=== PATIENT | male | born 1990 | race Caucasian/White ===

== ENCOUNTER 2019-11-23 14:13 | Inpatient (IN) ==
[2019-11-23] MEDS ORDERED: DIAZEPAM 5 MG/ML INJ 10ML VIAL IV STA (14:28)
[2019-11-23] MEDS ORDERED: ONDANSETRON INJ 2 MG/ML 2 ML VIAL IV STA (14:28)
[2019-11-23] MEDS ORDERED: KETOROLAC 30 MG/ML VIAL IV STA (14:28)
[2019-11-23] MEDS: SODIUM CHLORIDE 0.9% 1000ML 1,000 ML IV SCH ×2 (14:47→16:12)
[2019-11-23 14:58] LABS: Basophils # (auto) 0.02 K/uL (0-0.2); Basophils % (auto) 0.2 %; Eosinophils # (auto) 0.07 K/uL (0-0.5); Eosinophils % (auto) 0.7 %; Hematocrit (blood only) 41.2 % (42-52); Immature Granulocytes # (auto) 0.02 K/uL (0.00-0.02); Immature Granulocytes % (auto) 0.2 %; Lymphocytes # (auto) 2.08 K/uL (1.2-3.4); Lymphocytes % (auto) 21.9 %; Mean Corpuscular Volume 85.3 fL (80-100); Mean Platelet Volume 9.6 fL (7.4-10.4); Monocytes # (auto) 1.06 K/uL (0.11-0.59); Monocytes % (auto) 11.1 %; Neutrophils # (auto) 6.26 K/uL (1.4-6.5); Neutrophils % (auto) 65.9 %; Platelet Count 284 K/uL (130-400); RDW Standard Deviation 40.6 fL (36.4-46.3); Red Blood Count 4.83 M/uL (4.7-6.1); White Blood Count 9.51 K/uL (4.8-10.8)
[2019-11-23 15:16] LABS: BUN Creatinine Ratio 10.9 (10-20); Calcium 8.9 mg/dl (8.5-10.1); Creatinine Clr Calc Pharmacy 113.1 ml/min; Est GFR (African American) 106.5; Est GFR (Non-African American) 91.9; Potassium 3.6 mmol/L (3.5-5.1)
[2019-11-23] MEDS ORDERED: methylPREDNISolone 125 MG/2 ML VIAL IV STA (15:57)
--- NOTE | 2019-11-23 16:02 | XRay Report ---
XR lumbar spine 2-3V CLINICAL HISTORY: lower back pain pain. Trauma. COMPARISON STUDY: 09/03/2018 FINDINGS: Normal study IMPRESSION: Normal study. ACT 112: Negative or not required by law. The above report was generated using voice recognition software. It may contain grammatical, syntax or spelling errors. Electronically signed by: John Jordan M.D. 11/23/2019 4:00 PM
[2019-11-23] MEDS ORDERED: MoRPHine SULFATE 4 MG/ML 1 ML CARP\\VIAL IV STA (17:58)
--- NOTE | 2019-11-23 19:32 | Emergency Department Note ---
Entered by Jerald Thornton acting as a scribe for Master Ibarra DO History of Present Illness General Chief complaint: Back Injury/Pain Source: patient History of Present Illness Onset (ago): day(s) 1 Location: back (central) Pain Consistency: + constant Maximum Pain Intensity: 4 Quality: + other (back pain) Associated symptoms: + other (-leg pain; -rhinorrhea; ); no chest pain, no cough, no nausea/vomiting and no weakness The patient is a 28 year old male, with past medical history of disc herniation, who presents to the Emergency Room with complaints of constant, central back pain beginning yesterday. 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 The patient notes he went about his day normally after this, but he states the back pain made it hard for him to walk. The patient states that the pain worsened over night to the point where the patient states he laid on the floor at 0130 this morning because it was too painful to stand and move. The patient states he remained on the floor till EMS picked him up prior to arrival. The patient admits to having a herniated disc in high school. The patient states he has been able to urinate and defecate fine. He denies pain and weakness to his legs. The patient also denies a cough, rhinorrhea, nausea/vomiting, chest pain, or the pain moving down into his legs. The patient denies previous back surgeries, recent trauma or fall, history of drug use, or history of cancer. Home Medications Home Medications Medication Instructions Recorded Confirmed Type dextroamphetamine-amphetamine 20 mg PO BID 11/23/19 11/23/19 History hydrocodone-acetaminophen 1 tab PO Q6H PRN 11/23/19 11/23/19 History tizanidine 4 mg PO Q8H PRN 11/23/19 11/23/19 History Allergies Allergy/AdvReac Type Severity Reaction Status Date / Time No Known Allergies Allergy Unverified 11/23/19 14:57 Past Med/Surg History Medical History Disc herniation Family History Other No significant family history Social History Feels Safe at Home: Yes Smoking Status: Never smoker Review of Systems See HPI for pertinent positives & negatives. and A total of 10 systems reviewed and were otherwise negative Physical Exam Vital Signs Vital Signs - 24 hr 11/23/19 14:23 11/23/19 14:38 11/23/19 15:57 Temperature 36.9 C Temperature Source Oral Pulse Rate 100 H Pulse Rate [Apical] 72 Pulse Rhythm [Apical] Regular Pulse Strength [Apical] Normal Respiratory Rate 18 20 Respiratory Effort / Characteristics Non-Labored Spontaneous Respiratory Depth Normal Blood Pressure 148/89 H Blood Pressure [Right Arm] 138/76 Blood Pressure Mean 108 Blood Pressure Mean [Right Arm] 96 Pulse Oximetry 100 97 100 Oxygen Delivery Method Room Air Room Air Sepsis Recent Fever Within 48 Hours No Sepsis New/Unexplained Change in Mental Status No Sepsis Action Taken by Nursing No Action Required 11/23/19 18:27 Temperature Temperature Source Pulse Rate Pulse Rate [Apical] 88 Pulse Rhythm [Apical] Pulse Strength [Apical] Respiratory Rate 16 Respiratory Effort / Characteristics Respiratory Depth Blood Pressure Blood Pressure [Right Arm] 133/75 Blood Pressure Mean Blood Pressure Mean [Right Arm] 94 Pulse Oximetry 96 Oxygen Delivery Method Room Air Sepsis Recent Fever Within 48 Hours Sepsis New/Unexplained Change in Mental Status Sepsis Action Taken by Nursing GENERAL: laying in bed, in moderate distress, non-toxic EYE EXAM: normal conjunctiva OROPHARYNX: no exudate, no erythema, lips, buccal mucosa, and tongue normal and mucous membranes are moist NECK: supple, no nuchal rigidity, no adenopathy, non-tender LUNGS: Clear to auscultation. Normal chest wall mechanics HEART: no murmurs, S1 normal and S2 normal ABDOMEN: abdomen soft, non-tender, normo-active bowel sounds, no masses, no rebound or guarding. BACK: Back is symmetrical on inspection and there is no deformity, tenderness to midline lower lumbar, no CVA tenderness. SKIN: no rashes and no bruising UPPER EXTREMITIES: upper extremities are grossly normal. LOWER EXTREMITIES: No pitting edema. Flexion and extension of the hips, knees, ankles, and EHL 5/5 bilaterally. Gross sensation is intact. DPs are 2/4 bilateral. Patellar and Achilles reflexes are 2/4 bilateral. Significant pain with flexion to bilateral hips, worse on right. NEURO EXAM: Normal sensorium, cranial nerves II-XII grossly intact, normal speech, no gross weakness of arms. Course Course ED COURSE: Vital signs were reviewed and showed hypertensive situationally. The patients medical record was reviewed The above diagnostic studies were performed and reviewed. ED treatments and interventions as stated above. 1421: The patient was evaluated in room B7. A complete history and physical examination was performed. 1557: I reevaluated and updated the patient. The patient is more comfortable right now and is currently drowsy. 1712: I reevaluated and updated the patient. The patient reports he is feeling better. We are going to try to ambulate the patient. 1738: The patient was able to stand, but he is in a ton of pain. The patient will most likely need hospitalization. 1801: I reviewed the patient's case [facility]. Dr. Lozoya will evaluate the patient for further management. Based on the patients age, coexisting illnesses, exam and lab findings the decision to treat as an inpatient was made. The patient remained stable while under my care. The patient will be evaluated for further management. Consultations Consultation #1: I reviewed the patient's case with [facility]. Dr. Lozoya will evaluate the patient for further management. Time: 18:01 Administered Medications Discontinued Medications Diazepam (Valium) 5 mg IV NOW STA Stop: 11/23/19 14:29 Last Admin: 11/23/19 14:47 Dose: 5 mg Documented by: [id number] Sodium Chloride (Nss 1000ml) 1,000 mls @ 999 mls/hr IV .Q1H1M MARY KATE Stop: 11/23/19 16:30 Last Infusion: 11/23/19 19:06 Dose: 0 mls/hr Documented by: [id number] Admin: 11/23/19 16:12 Dose: 999 mls/hr Documented by: [id number] Infusion: 11/23/19 16:12 Dose: 0 mls/hr Documented by: [id number] Admin: 11/23/19 14:47 Dose: 999 mls/hr Documented by: [id number] Ketorolac Tromethamine (Toradol) 30 mg IV NOW STA Stop: 11/23/19 14:29 Last Admin: 11/23/19 14:47 Dose: 30 mg Documented by: [id number] Methylprednisolone (Solumedrol) 125 mg IV NOW STA Stop: 11/23/19 15:58 Last Admin: 11/23/19 16:12 Dose: 125 mg Documented by: [id number] Morphine Sulfate (Morphine Sulfate) 4 mg IV NOW STA Stop: 11/23/19 17:59 Last Admin: 11/23/19 18:20 Dose: 4 mg Documented by: [id number] Ondansetron HCl (Zofran) 4 mg IV NOW STA Stop: 11/23/19 14:29 Last Admin: 11/23/19 14:47 Dose: 4 mg Documented by: [id number] Medical Decision Making Differential Diagnosis Differential diagnosis: Etiologies such as musculoskeletal, disc herniation, fracture, aortic disease, metastatic disease, cord compression, discitis, infection, renal colic, gastrointestinal, acute exacerbation of chronic back pain, sciatica, cauda equina, as well as others were entertained. Medical Records Attestation: I reviewed the patient's medical records. Home Medications Current Medication List: was personally reviewed by me Laboratory Data Attestation: I reviewed the patient's lab results. Result diagrams: 11/23/19 14:38 11/23/19 14:38 Lab Results 11/23/19 11/23/19 Range/Units 14:38 14:38 WBC 9.51 (4.8-10.8) K/uL RBC 4.83 (4.7-6.1) M/uL Hgb 14.0 (14.0-18.0) g/dL Hct 41.2 L (42-52) % MCV 85.3 (80-100) fL MCH 29.0 (25-34) pg MCHC 34.0 (32-36) g/dL RDW Std Deviation 40.6 (36.4-46.3) fL RDW Coeff of Britany 13.0 (11.5-14.5) % Plt Count 284 (130-400) K/uL MPV 9.6 (7.4-10.4) fL Immature Gran % (Auto) 0.2 % Neut % (Auto) 65.9 % Lymph % (Auto) 21.9 % [place] % (Auto) 11.1 % Eos % (Auto) 0.7 % Baso % (Auto) 0.2 % Immature Gran # (Auto) 0.02 (0.00-0.02) K/uL Neut # (Auto) 6.26 (1.4-6.5) K/uL Lymph # (Auto) 2.08 (1.2-3.4) K/uL [place] # (Auto) 1.06 H (0.11-0.59) K/uL Eos # (Auto) 0.07 (0-0.5) K/uL Baso # (Auto) 0.02 (0-0.2) K/uL Sodium 141 (136-145) mmol/L Potassium 3.6 (3.5-5.1) mmol/L Chloride 109 H (98-107) mmol/L Carbon Dioxide 27 (21-32) mmol/L Anion Gap 4.0 (3-11) BUN 12 (7-18) mg/dl Creatinine 1.09 (0.6-1.4) mg/dl Est Cr Clr Drug Dosing 113.1 ml/min Est GFR ( Amer) 106.5 Est GFR (Non-Af Amer) 91.9 BUN/Creatinine Ratio 10.9 (10-20) Glucose 89 (70-99) mg/dl Calcium 8.9 (8.5-10.1) mg/dl Imaging Data Radiologist's Impression: Radiology results as stated below per my review and the radiologist's interpretation: XR lumbar spine 2-3V CLINICAL HISTORY: lower back pain pain. Trauma. COMPARISON STUDY: 09/03/2018 FINDINGS: Normal study IMPRESSION: Normal study. ACT 112: Negative or not required by law. The above report was generated using voice recognition software. It may contain grammatical, syntax or spelling errors. Electronically signed by: John Jordan M.D. 11/23/2019 4:00 PM Blood Pressure Blood Pressure Findings: Elevated blood pressure Blood Pressure Disposition: elevated BP felt to be situational MDM Narrative Patient is a 28-year-old male who presents the ER for severe back pain. He notes he bent over to get something out of a tub yesterday and started having moderate pain. This gradually worsened. He does have a history of a lumbar disc with no previous surgery. Denies any paresthesias or numbness in the groin. Able to move his bowels and urinate without difficulty. He has been unable to get up off the floor as any movement significantly worsens the pain. He denies any weakness or numbness in the legs with the exception of the left lateral calf which has paresthesias. CBC along with BMP was unremarkable with the exception of a slightly elevated chloride. X-rays of the lumbar spine were negative. No signs of cauda equina. He denies any fevers, IV drug use, history of cancer or recent trauma. Patient was given 2 dose IV morphine prior to arrival from EMS. Here he was given IV Valium and IV morphine as well as fluids. He was still unable to to stand as he was having too much pain with movement. Cussed with the hospitalist for observation after discussing with the patient. Impression & Plan Back pain, High serum chloride, Ambulatory dysfunction Discharge Plan Visit Data Chief Complaint: Back Injury/Pain ED Provider: Master Ibarra Discharge Problem: Back pain, High serum chloride, Ambulatory dysfunction Patient Disposition: Being Evaluated by Hospitalist Forms Stand Alone Forms: My [facility] Prescriptions Prescriptions: No Action tizanidine 4 mg Tablet 4 mg PO Q8H PRN (Reason: Muscle Spasm) RF: 0 hydrocodone-acetaminophen 10-325 mg Tablet 1 tab PO Q6H PRN (Reason: Pain) RF: 0 dextroamphetamine-amphetamine 20 mg tablet 20 mg PO BID RF: 0 Referrals Referrals: Derik Manley [Primary Care Provider] - Discharge Problem: Back pain Qualifiers: Back pain location: back pain in unspecified location Chronicity: acute Back pain laterality: unspecified Qualified Code(s): M54.9 - Dorsalgia, unspecified The scribe's documentation has been prepared under my direction and personally reviewed by me in its entirety. I confirm that the note above accurately reflects all work, treatment, procedures, and medical decision making performed by me.
--- NOTE | 2019-11-23 20:00 | History & Physical Report ---
Date of Service November 23, 2019 Assessment & Plan (1) Lumbar disc herniation: Admit to [facility] Consult Ortho for severe central narrowing at L4-L5 Pain management DVT prophylaxis with Siu 40 SQ every 24 Full code Present on Admission?: Yes (2) Ambulatory dysfunction: Plan physical and Occupational Therapy upon evaluation by orthopedics Present on Admission?: Yes History of Present Illness Chief Complaint: Lower back pain Primary Care Provider: Derik Manley Patient is a 28 years old male with past medical history of lumbar disc herniation who presents to the emergency room with a complaint of constant lower back pain that started yesterday. 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 Patient reports that he could not walk normally anymore today and he laid on the floor at 130 this morning because it was too painful to stand removed. Patient remained like that until EMS picked him up prior to arrival to the emergency room. Patient reports having a herniated disc since his high school. Patient denies problems with on urination or defecation. Patient denies fever, chills, chest pain, shortness of breath, abdominal pain, frequency, urgency. Patient denies having numbness or loss of feeling or tingling in his lower extremities. Reviewed which shows WBCs of 9.51, hemoglobin 14, hematocrit 41.2, platelets 284, sodium 141, potassium 3.6, chloride 109, BUN 12, creatinine 1.09, GFR 91.9, BUN 10.9. X-rays of the lumbar spine did not reveal any issue. MRI of the lumbar spine shows severe central canal narrowing at L4-L5 due to broad-based posterior disc bulge and a focal central disc protrusion. Decision was made to admit patient to [facility] for further evaluation of severe central canal narrowing at L4-L5. Allergies Allergy/AdvReac Type Severity Reaction Status Date / Time No Known Allergies Allergy Unverified 11/23/19 14:57 Home Medications Home Medications Medication Instructions Recorded Confirmed Type dextroamphetamine-amphetamine 20 mg PO BID 11/23/19 11/23/19 History hydrocodone-acetaminophen 1 tab PO Q6H PRN 11/23/19 11/23/19 History tizanidine 4 mg PO Q8H PRN 11/23/19 11/23/19 History Past Med/Surg History Medical History ADHD Disc herniation Family History Other No significant family history Social History Preferred Language: Kosovan Communication Ability: Effective Building Construction Superintendent Required: No Beliefs That Will Affect Care: None Current Living Situation: Spouse Other Information That Helps Us Care for You: No Feels Safe at Home: Yes Safety Concerns: Feels Safe At This Time Smoking Status: Never smoker Do You Dip or Chew Tobacco: No ; Hx Alcohol Use: Yes Alcohol type: beer Hx Substance Use: No Review of Systems Review of Systems: All systems reviewed & are unremarkable except as noted in HPI & below Physical Exam Constitutional: WD/WN, vitals as above + ill appearing and + obese Eyes: PERRL, conjunctivae normal, anicteric sclerae ENMT: external ear and nose normal, oropharynx normal Neck: trachea midline, no thyromegaly Respiratory: normal respiratory effort, lungs clear to auscultation Cardiovascular: RRR, no murmur, no edema Gastrointestinal (Abdomen): normal bowel sounds, soft, nontender, no hepatosplenomegaly Musculoskeletal: no cyanosis or clubbing, extremities motor strength 5/5 Skin: no rashes, warm and dry Neurologic: patellar DTR's 2+ bilat, sensation intact Psychiatric: A+Ox3, euthymic affect Lymphatic: no cervical or axillary lymphadenopathy Results & Data Vital Signs (Past 12 Hours) Vital Signs Temp Pulse Pulse Resp BP BP Pulse Ox 11/23/19 18:27 88 16 133/75 96 11/23/19 15:57 72 20 138/76 100 11/23/19 14:38 97 11/23/19 14:23 36.9 C 100 H 18 148/89 H 100 Code Status & VTE Plan Code Status Full code VTE Prophylaxis Plan VTE Prophylaxis will be ordered: Yes PG Care Time/CCT Total # of Minutes Spent Total Time Spent with Patient: Total time spent is greater than 50% in coordination of care (as documented) at patient's floor/unit and/or counseling patient:
--- NOTE | 2019-11-23 21:28 | Magnetic Resonance Report ---
LUMBAR SPINE MRI HISTORY: lower back pain and immobility TECHNIQUE: Multiplanar multisequence MRI of the lumbar spine was performed without the use of contras t. COMPARISON: Lumbar spine 11/23/2019. FINDINGS: For the purpose of the report the L5-S1 disc space will be located on axial image 27 of 30. Straightening of the lumbar spine. No fracture or subluxation. Normal marrow signal intensity seen th roughout the visualized osseous structures. Mild disc space narrowing and disc desiccation at L4-L5. Remaining disc spaces are preserved. The conus terminates at the L1 level. Paraspinal soft tissues ar e within normal limits. L1-L2: No significant central canal or neural foraminal narrowing. L2-L3: No significant central canal or neural foraminal narrowing. L3-L4: No significant central canal or neural foraminal narrowing. L4-L5: Broad-based posterior disc bulge with a focal central disc protrusion resulting in severe cent ral canal narrowing. The central canal measures 4 mm in diameter. There is also mild bilateral neural foraminal narrowing. L5-S1: No significant central canal or neural foraminal narrowing. IMPRESSION: There are severe central canal narrowing at L4-L5 due to a broad-based posterior disc bulge and a foc al central disc protrusion. ACT 112: Negative or not required by law. Electronically signed by: Abelardo Olson M.D. 11/23/2019 9:27 PM
[2019-11-23] MEDS ORDERED: TIZANIDINE HCL 4 MG TABLET PO PRN (21:45)
[2019-11-23] MEDS ORDERED: SODIUM CHLORIDE 0.9% 1000ML 1,000 ML IV SCH (21:45)
[2019-11-23] MEDS ORDERED: KETOROLAC 30 MG/ML VIAL IV PRN (21:45)
[2019-11-23] MEDS ORDERED: ALUMINUM/MAGNESIUM SUSP 30 ML UDC PO PRN (21:45)
[2019-11-23] MEDS ORDERED: ACETAMINOPHEN 325 MG TAB PO PRN (21:45)
[2019-11-23] MEDS ORDERED: HYDROCODONE/ACETAMINOPHEN 10/325 TAB PO PRN (21:45)
[2019-11-23] MEDS ORDERED: POLYETHYLENE (MIRALAX) 17 GM PACK PO PRN (21:45)
[2019-11-23] MEDS ORDERED: MAGNESIUM HYDROXIDE SUSP 30 ML UDC PO PRN (21:45)
[2019-11-23] MEDS: ENOXAPARIN INJ 40 MG/0.4 ML SYR SQ SCH (22:35)
[2019-11-23] MEDS: AMPHETAMINE ASP/SULF/DEXTRAMPH 20 MG TAB PO SCH (22:39)
[2019-11-24] MEDS: MoRPHine SULFATE 2 MG/ML CARP IV PRN ×2 (09:32→18:39)
[2019-11-24] MEDS: AMPHETAMINE ASP/SULF/DEXTRAMPH 20 MG TAB PO SCH ×2 (09:32→20:19)
[2019-11-24] MEDS: dexAMETHasone 4 MG in SYRINGE 0 ML IV SCH ×3 (12:05→22:37)
--- NOTE | 2019-11-24 12:23 | Orthopedic Consultation ---
Date of Consultation November 24, 2019 Assessment & Plan (1) Lumbar disc herniation: At this time I discussed with this patient considering a consultation for interventional pain management and epidural injection. Has had 1 of these 10 years ago with excellent results. Is probably worth a second attempt at this time. Certainly would like to try this before considering surgical intervention as he is only 26 years of age. He understands agrees with this plan. I will follow him throughout his stay. Present on Admission?: Yes History of Present Illness Reason for Consultation: Severe back pain Attending Physician: Brannon Mccormick History of Present Illness This is a very pleasant 20-year-old male that states he had a severe episode of back pain beginning late Thursday evening. He woke earlier Thursday early a.m. with severe symptoms unable to ambulate was ultimately taken to emergency room and underwent imaging. This does demonstrate severe spinal stenosis L4-5 secondary to a large central disc herniation. He states he has had history of back issues for several years. He had an epidural injection approximately 10 years ago with significant results. At this time he denies any perineal numbness any loss of bowel bladder function. Denies any lower extremity weakness. Does describe some pain emanating the left leg with activity. He is comfortable at this time while lying in bed. Allergies Allergy/AdvReac Type Severity Reaction Status Date / Time No Known Allergies Allergy Unverified 11/23/19 14:57 Home Medications Home Medications Medication Instructions Recorded Confirmed Type dextroamphetamine-amphetamine 20 mg PO BID 11/23/19 11/23/19 History hydrocodone-acetaminophen 1 tab PO Q6H PRN 11/23/19 11/23/19 History tizanidine 4 mg PO Q8H PRN 11/23/19 11/23/19 History Patient History Medical History ADHD Disc herniation Family History Other No significant family history Social History Preferred Language: Vietnamese Communication Ability: Effective Wwe Wrestler Required: No Beliefs That Will Affect Care: None Current Living Situation: Spouse Other Information That Helps Us Care for You: No Feels Safe at Home: Yes Safety Concerns: Feels Safe At This Time Smoking Status: Never smoker Do You Dip or Chew Tobacco: No ; Hx Alcohol Use: Yes Alcohol type: beer Hx Substance Use: No Physical Exam Physical Exam: On exam he does appear comfortable his is at the bedside. He is a plus out of 5 bilateral plantar flexion dorsiflexion quadriceps. Sensory symmetric intact. There is back pain with straight leg raising and some modest tension signs on the left. Results & Data Vital Signs (Past 12 Hours) Vital Signs Temp Pulse Resp BP Pulse Ox 11/24/19 07:11 36.6 C 82 16 123/72 96
[2019-11-24] MEDS: PANTOprazole 40 MG TAB PO SCH (18:27)
--- NOTE | 2019-11-24 21:31 | Hospitalist Progress Note ---
Date of Service November 24, 2019 Assessment & Plan (1) Lumbar disc herniation: L4/L5 large disc herniation. This results in severe central canal narrowing. This is an acute/chronic issue -- he first learned of his herniated disc in his late teenage years. However, it is certainly much worse since re-injuring the back when he attempted to bend down to get items from his bathtub. Fortunately neuro exam is intact and no bowel/bladder issues Acutely will add decadron 4mg IV q6h. Cont morphine prn. Cont toradol prn. Cont muscle relaxation prn. Add heat - asked staff to order k-pad. Seen by Dr Fallon - he would like to hold off on surgical intervention at this time. If the above measures including IV steroids do not help then consideration towards epidural corticosteroid injection. Gentle PT, OT. re-eval tomorrow. appreciate ortho consultation. (2) Ambulatory dysfunction: obtain physical and Occupational Therapy evals (3) DVT prophylaxis: lovenox daily updated at bedside Subjective patient states back pain is improved from yesterday but still quite severe with movement. he is at least able to tolerate shifting in bed from lying to sitting. some pain does radiate into the back of the left leg. no paresthesias. no bowel/bladder issues. seen by Dr Fallon just prior to my arrival; he recommends against surgery and wants to consider epidural pain injection. Review of Systems Constitutional: no fever and no chills Respiratory: no dyspnea Cardiovascular: no chest pain Physical Exam Constitutional: well developed and well nourished; no acute distress (although he is uncomfortably with turning over in bed) ENMT: external ear and nose normal, oropharynx normal Respiratory: normal respiratory effort, lungs clear to auscultation Cardiovascular: Rate/Rhythm: regular rate and regular rhythm Heart Sounds: normal S1, normal S2 and + murmur (1/6 LLSB systolic) Vessels: posterior tibial pulses present and dorsalis pedis pulses present Extremities: + edema Gastrointestinal (Abdomen): normal bowel sounds, soft, nontender, no hepatosplenomegaly Neurologic: moves all extremities (strength 5/5 x 4 extremities) Psychiatric: A+Ox3, euthymic affect Results & Data Vital Signs (Past 12 Hours) Vital Signs Temp Pulse Resp BP Pulse Ox 11/24/19 15:21 37.3 C 95 H 18 147/76 H 93 PG Care Time/CCT Total # of Minutes Spent Total Time Spent with Patient: Total time spent is greater than 50% in coordination of care (as documented) at patient's floor/unit and/or counseling patient:
[2019-11-24] MEDS: ENOXAPARIN INJ 40 MG/0.4 ML SYR SQ SCH (22:37)
[2019-11-25] MEDS: dexAMETHasone 4 MG in SYRINGE 0 ML IV SCH ×2 (04:59→11:30)
[2019-11-25 06:19] LABS: Basophils # (auto) 0.01 K/uL (0-0.2); Basophils % (auto) 0.1 %; Hematocrit (blood only) 40.6 % (42-52); Hemoglobin 13.8 g/dL (14.0-18.0); Immature Granulocytes # (auto) 0.04 K/uL (0.00-0.02); Immature Granulocytes % (auto) 0.2 %; Lymphocytes # (auto) 1.26 K/uL (1.2-3.4); Lymphocytes % (auto) 7.8 %; Mean Corpuscular Volume 85.3 fL (80-100); Mean Platelet Volume 10.2 fL (7.4-10.4); Monocytes # (auto) 0.74 K/uL (0.11-0.59); Monocytes % (auto) 4.6 %; Neutrophils # (auto) 14.11 K/uL (1.4-6.5); Neutrophils % (auto) 87.3 %; Platelet Count 309 K/uL (130-400); RDW Coefficient of Variation 12.9 % (11.5-14.5); RDW Standard Deviation 39.6 fL (36.4-46.3); Red Blood Count 4.76 M/uL (4.7-6.1); White Blood Count 16.16 K/uL (4.8-10.8)
[2019-11-25 06:56] LABS: Albumin Level 3.4 gm/dl (3.4-5.0); BUN Creatinine Ratio 20.1 (10-20); Calcium 8.4 mg/dl (8.5-10.1); Creatinine Clr Calc Pharmacy 126.3 ml/min; Est GFR (African American) 121.1; Est GFR (Non-African American) 104.5
[2019-11-25 06:59] LABS: Albumin Globulin Ratio 0.9 (0.9-2); Bilirubin,Total 0.7 mg/dl (0.2-1); Globulin 3.7 gm/dl (2.5-4.0); Total Protein 7.1 gm/dl (6.4-8.2)
--- NOTE | 2019-11-25 08:42 | Pain Management Consultation ---
Date of Consultation November 25, 2019 Assessment & Plan (1) Lumbar disc herniation: * Recommend interlaminar epidural steroid injection. Potential risks, benefits and alternatives discussed. Patient can be discharged regimen and undergone injection outpatient clinic after discharge. He is agreeable with the treatment plan and appointment is already scheduled. Present on Admission?: Yes History of Present Illness Reason for Consultation: Back and leg pain Attending Physician: Hernandez Clements MD History of Present Illness 28 year old male admitted to [facility] with acute onset of low back pain with bilateral lower extremity pain. Pain started when he bent over to crop picker an object and stood up. Pain is rated 2/10 when minimal and 6/10. Pain occurs at rest and with ADL activity. Has a previous history of experiencing similar symptoms with L4/L5 herniated disc present 10 years ago which was treated with interlaminar epidural steroid injections with good efficacy. Since then, he has been experiencing axial low back pain intermittently that has responded to conse rvative measures including use of NSAIDs and intermittent use of hydrocodone. Currently in the hospital setting, he has been treated with hydrocodone, oxycodone, tizanidine, and IV dexamethasone weight moderate improvement of his overall symptoms. He denies experiencing bowel or bladder incontinence, weakness in lower extremities, saddle anesthesia, or other significant neurological symptoms ass ociated with his back pain and radicular pain. Denies history of any fevers, chills, constitutional symptoms, night sweats, or unplanned weight loss. Pain Assessment Full Body Front + Back: 1. 2. 3. 4. 5. [facility] Combined Pain Scale: 6-Mod to Severe - Significant limitations of ADLs. Hard to do anything Pain scale - at its best (0-10): 2 Pain scale - at its worst (0-10): 6 Allergies Allergy/AdvReac Type Severity Reaction Status Date / Time No Known Allergies Allergy Unverified 11/23/19 14:57 Home Medications Home Medications Medication Instructions Recorded Confirmed Type dextroamphetamine-amphetamine 20 mg PO BID 11/23/19 11/23/19 History tizanidine 4 mg PO Q8H PRN 11/23/19 11/23/19 History acetaminophen [Mapap 650 mg PO Q4H PRN #1 tab 11/25/19 Rx (acetaminophen)] gabapentin 100 mg PO TID #60 cap 11/25/19 Rx methylprednisolone [Medrol (Sreedhar)] See Rx Instructions .ROUTE 11/25/19 Rx .COMPLEX #21 ea oxycodone 5 mg PO Q6H PRN 3 Days #18 tab 11/25/19 Rx oxycodone 10 mg PO Q6H PRN 3 Days #18 tab 11/25/19 Rx Pain History Pain Intensity Pain scale - at its best (0-10): 2 Pain scale - at its worst (0-10): 6 Patient History Medical History ADHD Disc herniation Family History Other No significant family history Social History Preferred Language: Swedish Communication Ability: Effective Ground Transportation Operator Required: No Beliefs That Will Affect Care: None Current Living Situation: Spouse Feels Safe at Home: Yes Smoking Status: Never smoker Hx Alcohol Use: Yes Alcohol type: beer Hx Substance Use: No Physical Exam Constitutional: WD/WN, vitals as above healthy appearing; no acute distress Musculoskeletal: Spine: + straight leg raise positive (Bilaterally at 35 degrees.); no lumbar spinal tenderness, no paraspinal tenderness, no sciatic notch tenderness and no sacral tenderness Extremities: strength 5/5 throughout Skin: no rashes, warm and dry no rashes and no ulcers Neurologic: normal touch/pain/proprioception, deep tendon reflexes 2+ bilaterally and plantar reflexes intact bilaterally Psychiatric: A+Ox3, euthymic affect Results Diagnostic Review MRI: non enhanced, reports reviewed and findings discussed with patient MRI Findings: [facility], [place] [phone] Magnetic Resonance Report Patient: Edilberto BRANHAM Date: 11/23/19 MR#: [id number]: [address] Acct ID:[id number]: Date: 1990[place] [facility] [place] [address] Age: 28Location: 3N Sex: M Room/Bed: [facility] Att Phy: Tino Lozoya MDDiagnosis: LOWER BACK PAIN WITH SPASM Camilla Phy: Derik Manley D.O.Service Date: 11/23/19 [facility] Phy:Interpreting Phy: Abelardo Olson MD Admit Phy: Tino Lozoya MD Ordering Phy: Tino Lozoya MD cc: ~ LUMBAR SPINE MRI HISTORY: lower back pain and immobility TECHNIQUE: Multiplanar multisequence MRI of the lumbar spine was performed without the use of contrast. COMPARISON: Lumbar spine 11/23/2019. FINDINGS: For the purpose of the report the L5-S1 disc space will be located on axial image 27 of 30. Straightening of the lumbar spine. No fracture or subluxation. Normal marrow signal intensity seen throughout the visualized osseous structures. Mild disc space narrowing and disc desiccation at L4-L5. Remaining disc spaces are preserved. The conus terminates at the L1 level. Paraspinal soft tissues are within normal limits. L1-L2: No significant central canal or neural foraminal narrowing. L2-L3: No significant central canal or neural foraminal narrowing. L3-L4: No significant central canal or neural foraminal narrowing. L4-L5: Broad-based posterior disc bulge with a focal central disc protrusion resulting in severe central canal narrowing. The central canal measures 4 mm in diameter. There is also mild bilateral neural foraminal narrowing. L5-S1: No significant central canal or neural foraminal narrowing. IMPRESSION: There are severe central canal narrowing at L4-L5 due to a broad-based posterior disc bulge and a focal central disc protrusion. ACT 112: Negative or not required by law. Electronically signed by: Abelardo Olson M.D. 11/23/2019 9:27 PM Dictated: 11/23/192122 Transcribed: 11/23/192122 Radiology: reports reviewed and findings discussed with patient Radiology Findings: [facility], [place] [phone] XRay Report Patient: Richie BRANHAMit Date: 11/23/19 MR#: [id number]: [address] Acct ID:[id number]: Date: 1990[facility] Zip: [place] [address] Age: 28Location: ED Sex: M Room/Bed: Att Phy:Diagnosis: BACK PAIN Camilla Phy: Derik Manley D.O.Service Date: 11/23/19 [facility] Phy:Interpreting Phy: John Jordan MD Admit Phy: Ordering Phy: Master Ibarra, cc: ~ XR lumbar spine 2-3V CLINICAL HISTORY: lower back pain pain. Trauma. COMPARISON STUDY: 09/03/2018 FINDINGS: Normal study IMPRESSION: Normal study. ACT 112: Negative or not required by law. The above report was generated using voice recognition software. It may contain grammatical, syntax or spelling errors. Electronically signed by: John Jordan M.D. 11/23/2019 4:00 PM Dictated: 11/23/19 1600 Transcribed: 11/23/19 1600
[2019-11-25] MEDS: PANTOprazole 40 MG TAB PO SCH (08:52)
[2019-11-25] MEDS: MoRPHine SULFATE 2 MG/ML CARP IV PRN (08:52)
[2019-11-25] MEDS: AMPHETAMINE ASP/SULF/DEXTRAMPH 20 MG TAB PO SCH (08:52)
[2019-11-25] MEDS ORDERED: OXYCODONE HCL IR 5 MG TAB (IMMEDIATE RELEASE) PO PRN ×2 (10:40→10:41)
[2019-11-25] MEDS ORDERED: GABAPENTIN 300 MG CAP PO SCH (10:45)
[2019-11-25] MEDS ORDERED: AMPHETAMINE ASP/SULF/DEXTRAMPH 20 MG TAB PO SCH (13:00)
--- NOTE | 2019-11-25 13:21 | Discharge Summary ---
Date of Service November 25, 2019 Admission HPI Per Admitting Provider Patient is a 28 years old male with past medical history of lumbar disc herniation who presents to the emergency room with a complaint of constant lower back pain that started yesterday. Patient states that pain was worsening after he bent over to corn picker some stuff out of his bathtub. Patient reports that he could not walk normally anymore today and he laid on the floor at 130 this morning because it was too painful to stand removed. Patient remained like that until EMS picked him up prior to arrival to the emergency room. Patient reports having a herniated disc since his high school. Patient denies problems with on urination or defecation. Patient denies fever, chills, chest pain, shortness of breath, abdominal pain, frequency, urgency. Patient denies having numbness or loss of feeling or tingling in his lower extremities. Reviewed which shows WBCs of 9.51, hemoglobin 14, hematocrit 41.2, platelets 284, sodium 141, potassium 3.6, chloride 109, BUN 12, creatinine 1.09, GFR 91.9, BUN 10.9. X-rays of the lumbar spine did not reveal any issue. MRI of the lumbar spine shows severe central canal narrowing at L4-L5 due to broad-based posterior disc bulge and a focal central disc protrusion. Decision was made to admit patient to [facility] for further evaluation of severe central canal narrowing at L4-L5. Admission Exam Per Admitting Provider Constitutional: WD/WN, vitals as above + ill appearing and + obese Eyes: PERRL, conjunctivae normal, anicteric sclerae ENMT: external ear and nose normal, oropharynx normal Neck: trachea midline, no thyromegaly Respiratory: normal respiratory effort, lungs clear to auscultation Cardiovascular: RRR, no murmur, no edema Gastrointestinal (Abdomen): normal bowel sounds, soft, nontender, no hepatosplenomegaly Musculoskeletal: no cyanosis or clubbing, extremities motor strength 5/5 Skin: no rashes, warm and dry Neurologic: patellar DTR's 2+ bilat, sensation intact Psychiatric: A+Ox3, euthymic affect Lymphatic: no cervical or axillary lymphadenopathy Principal Diagnosis Lumbar disc herniation Discharge Exam General: Resting comfortably HEENT: NC/AT; PERRLA with EOMI; [place] conjunctiva, MMM. No erythema of posterior pharynx Neck: Supple and nontender Cardiac: RRR Lungs: CTA bilaterally Abdomen: Bowel normoactive X 4; Nontender to palpation Back: NO spinous tenderness; +4/5 muscle strength in bilat LE Extremities: Warm. No edema present Neuro: No focal weakness Skin: No rash Discharge Data Allergies Allergy/AdvReac Type Severity Reaction Status Date / Time No Known Allergies Allergy Unverified 11/23/19 14:57 Consultations 11/23/19 17:58 ED Decision to Admit Stat 11/24/19 04:48 Consult Orthopedic Surgery Routine 11/24/19 12:22 Consult Pain Management Routine Ordered Studies 11/23/19 19:53 MR lumbar spine wo con Stat Lumbar spine XR Hospital Course (1) Lumbar disc herniation: Has large L4/L5 disc herniation with severe central canal narrowing. Started Decadron 4 mg IV q6hr -- convert to Medrol dose sreedhar at discharge. Used Morphine IV prn during this admission; convert to Oxycodone 5-10 mg q6hr prn moderate to severe pain. Muscle relaxants prn - did not use frequently. Started Gabapentin 300 mg loading dose then 100 mg TID -- can titrate dose as needed. Heat pad prn. Dr. Fallon also consulted -- would like to hold off on surgical intervention at this time. Pain management consulted, plan for steroid injection next week in the clinic. (2) Ambulatory dysfunction: Related to spinal issues. (3) DVT prophylaxis: Received Lovenox daily as inpatient. Discharged to home on 11/25/19. Total Time Total Time Spent Total Time Spent (In Minutes): >30 minutes Total Time Includes: Examination of the Patient, Discharge Planning, Medication Reconciliation, Communication With Other Providers and Other Discharge Plan Discharge Items Patient Disposition: Home - Self-Care Reason For Visit: LOWER BACK PAIN WITH SPASM Discharge Diagnosis: Lumbar Disc Herniation Condition on Discharge: Fair Goals: You have been hospitalized for an acute medical problem. During your stay at [facility], we have made an effort to correct the problem that brought you to the hospital while keeping you as comfortable as possible. Medications were used to bring your condition under control and your discharge instructions will include directions for any medications you should take after leaving the hospital. Please make sure you see your Primary Care Provider as part of your follow up plan. Activity: As commented below Exercise/Sports: Wait until after follow-up appointment Non-emergency contact: Primary Care Provider Call non-emergency contact if: you have any medication questions, your symptoms worsen, your pain is not controlled, your pain is worsening, your pain is unusual for you, your pain is concerning for you and you have a fever Follow-up/Referrals: Derik Manley [Primary Care Provider] - Diet: Regular Addtl Attending Provider Instructions: 1. Lumbar Disc Herniation * Please take a Medrol dose sreedhar -- per instructions on packaging. * Please take Oxycodone 5 mg every 6 hours as needed for mild to moderate pain and Oxycodone 10 mg every 6 hours for severe pain. * Please take Gabapentin 100 mg three times daily -- do not start this medi cation until tomorrow morning, Thursday, as you already received a loading dose of 300 mg this morning. * Please follow up with pain management for steroid injection -- this appointment will be scheduled next week. Pending Studies at Discharge: No Stand-Alone Forms: My [facility] [employer], Work/School Release (Inpt) Medications and DC Order Prescriptions: New acetaminophen [Mapap (acetaminophen)] 325 mg Tablet 650 mg PO Q4H PRN (Reason: mild pain (scale score 1-4)) Qty: 1 RF: 0 gabapentin 100 mg capsule 100 mg PO TID Qty: 60 RF: 0 oxycodone 5 mg Tablet 5 mg PO Q6H PRN (Reason: pain (scale score 4-6)) 3 Days Qty: 18 RF: 0 oxycodone 5 mg Tablet 10 mg PO Q6H PRN (Reason: severe pain (scale score 7-10)) 3 Days Qty: 18 RF: 0 methylprednisolone [Medrol (Sreedhar)] 4 mg tablets,dose pack See Rx Instructions .ROUTE .COMPLEX Qty: 21 RF: 0 Continued tizanidine 4 mg Tablet 4 mg PO Q8H PRN (Reason: Muscle Spasm) RF: 0 dextroamphetamine-amphetamine 20 mg tablet 20 mg PO BID RF: 0 Discontinued hydrocodone-acetaminophen 10-325 mg Tablet 1 tab PO Q6H PRN (Reason: Pain) RF: 0 Discharge Orders: Discharge Order (Routine); Ordered 11/25/19 Ordered By: Amy Parmar/Other Patient Handouts: Injection Cervical Epidural Having, Meds Pain Admission Data Admit Date/Time: 11/24/19 16:52 Attending Provider: Hernandez Clements Admit Provider: Tino Lozoya Primary Care Provider: Derik Manley Other Providers: Tino Lozoya ; Zeyad Fallon Upendra Other Interventions: Discharge Summary Assessment (RN) Last Done: 11/25/19 12:52
[2019-11-26] MEDS ORDERED: GABAPENTIN 100 MG CAP PO SCH (09:00)
[2019-11-26] MEDS ORDERED: AMPHETAMINE ASP/SULF/DEXTRAMPH 20 MG TAB PO SCH (09:00)
== END 2019-11-25 14:55 | disposition home or self-care (01) | DRG 552 ==
LOC: 3N 14:13 → ED 14:13 → SUATTDRO 19:59 → 3N 20:47 → SUATTDRO 11-24 16:52